=== PATIENT | male | born 1990 ===

== ENCOUNTER 2018-06-04 16:16 | Inpatient (IN) | payer BC, MEDICAID ==
--- NOTE | 2018-06-07 16:59 | CP.PCM.HP ---
History of Present Illness - History of Present Illness History of Present Illness: CC: 24 hour video EEG HPI: 27 y/o man w/ pmh of seizure disorder (diagnosed 3 years ago) presents for 48 hour video EEG. Patient currently on trileptal for seizure control. Patient reports seizures frequency progressively worsening. Patient seen by Dr. Stephen and given script to have 48 hour video EEG. Patient reports smoking marijuana daily, which patient reports helps w/ seizure and migraine. Patient has no other complaints and denies headaches, chest pain, dyspnea, abdominal pain, nausea, vomiting, diarrhea, dysuria, or fever. PMD: Dr. Astudillo PMH: seizure disorder meds: trileptal PSH: denies FamHx: father at age 43 from stroke in 1999 SOC: denies smoking cigarettes, denies alcohol, reports daily marijuana use ROS: 12 points assessed and negative unless otherwise reported in HPI Present on Admission - Present on Admission Any Indicators Present on Admission: No History of DVT/PE: No History of Uncontrolled Diabetes: No Urinary Catheter: No Decubitus Ulcer Present: No Review of Systems - Review of Systems All systems: reviewed and no additional remarkable complaints except - Constitutional Constitutional: absent: Chills, Fever, Headache - EENT Eyes: absent: Change in Vision - Cardiovascular Cardiovascular: absent: Chest Pain - Respiratory Respiratory: absent: Dyspnea - Gastrointestinal Gastrointestinal: absent: Abdominal Pain, Nausea, Vomiting - Genitourinary Genitourinary: absent: Dysuria - Integumentary Integumentary: absent: Rash - Neurological Neurological: absent: Dizziness, Headaches Past Patient History - Infectious Disease Hx of Infectious Diseases: None - Tetanus Immunizations Tetanus Immunization: Unknown - Past Social History Smoking Status: Former Smoker - CARDIAC Hx Cardiac Disorders: No Hx Hypertension: No - PULMONARY Hx Tuberculosis: No - NEUROLOGICAL HX Cerebrovascular Accident: No Hx Seizures: Yes - HEENT Hx HEENT Problems: No - RENAL Hx Chronic Kidney Disease: No - ENDOCRINE/METABOLIC Hx Endocrine Disorders: No - HEMATOLOGICAL/ONCOLOGICAL Hx Cancer: No - INTEGUMENTARY Hx Dermatological Problems: No - MUSCULOSKELETAL/RHEUMATOLOGICAL Hx Musculoskeletal Disorders: No Hx Falls: Yes - GASTROINTESTINAL Hx Gastrointestinal Disorders: No - GENITOURINARY/GYNECOLOGICAL Hx Sexually Transmitted Disorders: No - PSYCHIATRIC Hx Psychophysiologic Disorder: No Hx Depression: Yes Hx Substance Use: No - SURGICAL HISTORY Hx Surgeries: No - ANESTHESIA Hx Anesthesia: No Hx Anesthesia Reactions: No Hx Malignant Hyperthermia: No Meds Allergies/Adverse Reactions: Allergies Allergy/AdvReac Type Severity Reaction Status Date / Time No Known Allergies Allergy Verified 03/15/18 03:04 Physical Exam - Constitutional Appears: Well, Non-toxic, No Acute Distress - Head Exam Head Exam: ATRAUMATIC, NORMAL INSPECTION, NORMOCEPHALIC - Eye Exam Eye Exam: EOMI, Normal appearance, PERRL - ENT Exam ENT Exam: Mucous Membranes Moist - Neck Exam Neck exam: Positive for: Full Rom. Negative for: Tenderness - Respiratory Exam Respiratory Exam: Clear to Auscultation Bilateral, NORMAL BREATHING PATTERN. absent: Decreased Breath Sounds, Rales, Rhonchi, Wheezes, Respiratory Distress - Cardiovascular Exam Cardiovascular Exam: REGULAR RHYTHM, RRR, +S1, +S2. absent: Tachycardia - GI/Abdominal Exam GI & Abdominal Exam: Normal Bowel Sounds, Soft. absent: Distended, Tenderness - Extremities Exam Extremities exam: Positive for: normal capillary refill, normal inspection, pedal pulses present. Negative for: pedal edema - Neurological Exam Neurological exam: Alert, CN II-XII Intact, Normal Gait, Oriented x3 - Skin Skin Exam: Dry, Intact, Normal Color, Warm Assessment & Plan - Assessment and Plan (Free Text) Assessment: 27 y/o man w/ pmh of seizure disorder (diagnosed 3 years ago) presents for 48 hour video EEG. Plan: Seizure disorder - diagnosed 3 years ago - currently on trileptal - 48 hour video EEG - neurology consult, Dr. Stephen - monitor vitals Marijuana use - cessation counselling
[2018-06-07 17:07] VITALS: BMI 32.8
--- NOTE | 2018-06-08 07:08 | CP.PCM.PN ---
Subjective - Date & Time of Evaluation Date of Evaluation: 06/08/18 Time of Evaluation: 10:27 - Subjective Subjective: Patient seen and examined at bedside this morning. There are no acute events overnight, NAD. Patient denies headaches, seizure activity, dizziness, dyspnea, abdominal pain, nausea, vomiting, dysuria, or fever. Objective - Vital Signs/Intake and Output Vital Signs (last 24 hours): Temp Pulse Resp BP Pulse Ox 98.2 F 67 11 L 123/58 L 99 06/08/18 04:00 06/08/18 06:00 06/08/18 06:00 06/08/18 06:00 06/08/18 06:00 Intake and Output: 06/08/18 06/08/18 06:59 18:59 Output Total 200 Balance -200 - Medications Medications: Current Medications Oxcarbazepine (Trileptal) 150 mg PO BID JENNIFER - Constitutional Appears: Non-toxic, No Acute Distress - Head Exam Head Exam: NORMAL INSPECTION, NORMOCEPHALIC - Eye Exam Eye Exam: Normal appearance - ENT Exam ENT Exam: Mucous Membranes Moist - Neck Exam Neck Exam: Full ROM. absent: Tenderness - Respiratory Exam Respiratory Exam: Clear to Ausculation Bilateral, NORMAL BREATHING PATTERN. absent: Decreased Breath Sounds, Rales, Rhonchi, Wheezes, Respiratory Distress - Cardiovascular Exam Cardiovascular Exam: REGULAR RHYTHM, RRR, +S1, +S2. absent: Tachycardia, JVD, Murmur - GI/Abdominal Exam GI & Abdominal Exam: Soft, Normal Bowel Sounds. absent: Distended, Tenderness - Extremities Exam Extremities Exam: absent: Pedal Edema - Neurological Exam Neurological Exam: Alert, Awake, Normal Gait, Oriented x3 - Skin Skin Exam: Dry, Normal Color, Warm Assessment and Plan - Assessment and Plan (Free Text) Assessment: 27 y/o man w/ pmh of seizure disorder (diagnosed 3 years ago) presents for 48 hour video EEG Plan: Seizure disorder - diagnosed 3 years ago - currently on trileptal, held for now - c/w 48 hour video EEG - neurology consult, Dr. Stephen/Dr. Daniels - monitor for seizure activity - monitor vitals Marijuana use - cessation counselling
[2018-06-09 06:25] LABS: BASO # 0.1 K/uL (0.0-0.2); BASO % 0.8 % (0.0-2.0); EOS # 0.3 K/uL (0.0-0.7); EOS % 3.6 % (0.0-4.0); LYMPH # 2.6 K/uL (1.0-4.3); LYMPH % 31.5 % (20.0-40.0); MEAN CELL VOLUME 89.2 fl (80.0-94.0); MEAN CORPUSCULAR HEMOGLOBIN 30.1 pg (27.0-31.0); MEAN CORPUSCULAR HGB CONC 33.8 g/dL (33.0-37.0); MEAN PLATELET VOLUME 9.1 fl (7.2-11.7); MONO # 0.5 K/uL (0.0-0.8); NEUT # 4.9 K/uL (1.8-7.0); NEUT % 58.1 % (50.0-75.0); NRBC % 0.1 % (0.0-0.0); RBC 4.97 Mil/uL (4.40-5.90); RED CELL DISTRIBUTION WIDTH 13.1 % (11.5-14.5); WHITE BLOOD COUNT 8.4 K/uL (4.8-10.8)
[2018-06-09 06:58] LABS: BLOOD UREA NITROGEN 11 mg/dl (9-20); CALCIUM 9.2 mg/dL (8.4-10.2); GFR NON-AFRICAN AMERICAN > 60
[2018-06-09 09:13] VITALS: TEMP 98.3
--- NOTE | 2018-06-09 09:59 | CP.PCM.DIS ---
Provider - Provider Date of Admission: 06/07/18 17:08 Attending physician: Linda Bowie MD Primary care physician: Jt Astudillo MD Consults: 06/07/18 17:07 Neurology Consult Routine Comment: Consulting Provider: Juan Miguel Stephen Consulting Physician: Juan Miguel Stephen Reason for Consult: 48 hour video EEG Hospital Course - Lab Results Lab Results: Most Recent Lab Values WBC 8.4 K/uL (4.8-10.8) 06/09/18 05:25 RBC 4.97 Mil/uL (4.40-5.90) 06/09/18 05:25 Hgb 15.0 g/dL (12.0-18.0) 06/09/18 05:25 Hct 44.3 % (35.0-51.0) 06/09/18 05:25 MCV 89.2 fl (80.0-94.0) 06/09/18 05:25 MCH 30.1 pg (27.0-31.0) 06/09/18 05:25 MCHC 33.8 g/dL (33.0-37.0) 06/09/18 05:25 RDW 13.1 % (11.5-14.5) 06/09/18 05:25 Plt Count 222 K/uL (130-400) 06/09/18 05:25 MPV 9.1 fl (7.2-11.7) 06/09/18 05:25 Neut % (Auto) 58.1 % (50.0-75.0) 06/09/18 05:25 Lymph % (Auto) 31.5 % (20.0-40.0) 06/09/18 05:25 [place] % (Auto) 6.0 % (0.0-10.0) 06/09/18 05:25 Eos % (Auto) 3.6 % (0.0-4.0) 06/09/18 05:25 Baso % (Auto) 0.8 % (0.0-2.0) 06/09/18 05:25 Neut # (Auto) 4.9 K/uL (1.8-7.0) 06/09/18 05:25 Lymph # (Auto) 2.6 K/uL (1.0-4.3) 06/09/18 05:25 [place] # (Auto) 0.5 K/uL (0.0-0.8) 06/09/18 05:25 Eos # (Auto) 0.3 K/uL (0.0-0.7) 06/09/18 05:25 Baso # (Auto) 0.1 K/uL (0.0-0.2) 06/09/18 05:25 Sodium 142 mmol/l (132-148) 06/09/18 05:25 Potassium 4.4 MMOL/L (3.6-5.0) 06/09/18 05:25 Chloride 109 mmol/L (98-107) H 06/09/18 05:25 Carbon Dioxide 25 mmol/L (22-30) 06/09/18 05:25 Anion Gap 12 (10-20) 06/09/18 05:25 BUN 11 mg/dl (9-20) 06/09/18 05:25 Creatinine 1.0 mg/dl (0.8-1.5) 06/09/18 05:25 Est GFR ( Amer) > 60 06/09/18 05:25 Est GFR (Non-Af Amer) > 60 06/09/18 05:25 Random Glucose 104 mg/dL (75-110) 06/09/18 05:25 Calcium 9.2 mg/dL (8.4-10.2) 06/09/18 05:25 Discharge Exam - Head Exam Head Exam: NORMAL INSPECTION, NORMOCEPHALIC Discharge Plan - Follow Up Plan Condition: GOOD Disposition: HOME/ ROUTINE Referrals: Jt Astudillo MD [Primary Care Provider] -
[2018-06-09 14:01] VITALS: O2SAT 95
[2018-06-09 16:12] VITALS: BP 127/80; PULSE 97; RESP 15
--- NOTE | 2018-06-09 16:46 | CP.PCM.CON ---
History of Present Illness - History of Present Illness History of Present Illness: 27 yr old male, patient of Dr. Stephen, here for elective video EEG admisssion. 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 His aura is as follows: confusion and staring from a young age. He has had MRI Brain and EEG done in the past, and he does not know the findings. There is no family history of epilepsy, nor is there head trauma or meningitis or encephalitis. The aura progresses to generalized tonic clonic phase often, and last seizure was on , which was complex partial. In general, he has about 20 complex partial events per month, and has tremendous fatigue from trileptal. He is admitted to evaluate for breakthrough seizures and for localization of seizures. This is a phase one epilepsy monitoring admission. MEd trials: depakote, topamax, keppra, ROS: fatigue, headache. PMH/PSH: no dm, no htn. FH/SH: NO family history of epilepsy. Was working as an EMT for many years. smokes marijuana and no etoh. All: nkda. ON exam: Normal neurological examination. VIdeo EE hours: Shows normal posterior dominant rhythm at 10 hz Frequent Right temporal spikes phase reversing at T4. No clinical or subclinical seizures noted. Past Patient History - Infectious Disease Hx of Infectious Diseases: None - Tetanus Immunizations Tetanus Immunization: Unknown - Past Social History Smoking Status: Never Smoked - CARDIAC Hx Cardiac Disorders: No Hx Hypertension: No - PULMONARY Hx Respiratory Disorders: No Hx Tuberculosis: No - NEUROLOGICAL HX Cerebrovascular Accident: No Hx Seizures: Yes - HEENT Hx HEENT Problems: No - RENAL Hx Chronic Kidney Disease: No - ENDOCRINE/METABOLIC Hx Endocrine Disorders: No - HEMATOLOGICAL/ONCOLOGICAL Hx Blood Disorders: No Hx Cancer: No - INTEGUMENTARY Hx Dermatological Problems: No - MUSCULOSKELETAL/RHEUMATOLOGICAL Hx Musculoskeletal Disorders: No Hx Falls: No - GASTROINTESTINAL Hx Gastrointestinal Disorders: No - GENITOURINARY/GYNECOLOGICAL Hx Genitourinary Disorders: No Hx Sexually Transmitted Disorders: No - PSYCHIATRIC Hx Anxiety: Yes Hx Substance Use: No Other/Comment: Smokes Marijuana daily - SURGICAL HISTORY Hx Surgeries: No - ANESTHESIA Hx Anesthesia: No Hx Anesthesia Reactions: No Hx Malignant Hyperthermia: No Meds Allergies/Adverse Reactions: Allergies Allergy/AdvReac Type Severity Reaction Status Date / Time No Known Allergies Allergy Verified 03/15/18 03:04 - Medications Medications: Current Medications Oxcarbazepine (Trileptal) 150 mg PO BID JENNIFER Results - Vital Signs Recent Vital Signs: Last Vital Signs Temp 98.3 F 06/09/18 12:00 Pulse 81 06/09/18 12:00 Resp 20 06/09/18 12:00 BP 109/61 06/09/18 12:00 Pulse Ox 100 06/09/18 12:00 - Labs Result Diagrams: 06/09/18 05:25 06/09/18 05:25 Labs: Laboratory Results - last 24 hr 06/09/18 06/09/18 05:25 05:25 WBC 8.4 RBC 4.97 Hgb 15.0 Hct 44.3 MCV 89.2 MCH 30.1 MCHC 33.8 RDW 13.1 Plt Count 222 MPV 9.1 Neut % (Auto) 58.1 Lymph % (Auto) 31.5 [place] % (Auto) 6.0 Eos % (Auto) 3.6 Baso % (Auto) 0.8 Neut # (Auto) 4.9 Lymph # (Auto) 2.6 [place] # (Auto) 0.5 Eos # (Auto) 0.3 Baso # (Auto) 0.1 Sodium 142 Potassium 4.4 Chloride 109 H Carbon Dioxide 25 Anion Gap 12 BUN 11 Creatinine 1.0 Est GFR ( Amer) > 60 Est GFR (Non-Af Amer) > 60 Random Glucose 104 Calcium 9.2 Assessment & Plan - Assessment and Plan (Free Text) Assessment: 27 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 Plan; 1. Hold trileptal for admission. 2. Start video EEG monitoring for [address] chavez
--- NOTE | 2018-06-09 16:51 | CP.PCM.PN ---
Subjective - Date & Time of Evaluation Date of Evaluation: 06/09/18 Time of Evaluation: 11:00 - Subjective Subjective: Patient had no seizures or push buttons overnight. He would like to be discharged today. States that he requires marijuana to sleep nightly and has frequent complex partial events. EEG: shows normal posterior dominant rhythm RIght temporal sharp waves. On exam: Normal neurological examination. 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 He has failed multiple medications and most recently, his trileptal was reduced because he could not tolerate higher doses due to sleepiness. Even on 300 mg daily of trileptal, his video eeg shows that he is having frequent spikes. I feel that he has two treatment plan choices: 1. To start aptiom which will help his anxiety and epilepsy and is very well tolerated. 2. If aptiom is not covered by his insurance, and we are not able to procure an alternate, to first add lamictal 50 mg daily to his trileptal at night, until we can switch him to aptiom. These were discussed with the patient and his insurance did not cover aptiom. We will attempt to obtain it for him, and at the moment add lamictal 50 mg am, and trileptal 300 mg pm RTC to clinic in one month No driving for 3 months Seizure precautions. Thank you DR. Daniels [facility] Ep[facility]
--- NOTE | 2018-06-11 15:39 | PCM.VEEG ---
Video EEG - Procedure Start Date: 06/07/18 Start Time: 20:20 End Date: 06/09/18 End Time: 16:00 - Interpretation Description of the study: Manager Client Support Comments: Electrodes were placed according to the 10-20 international electrode system by sleep technologist. EEG activity was digitally recorded referentially to P1/P2 or A1/A2 electrodes. Digital analysis was used for spike detection. Continuous monitoring with EEG was performed using spike and seizures detection algorithms for digital EEG analysis throughout the monitoring period, to screen to EEG in real-time and ana the date file with pointers to electrographic seizures and interictal discharges. Physician, epileptologist reviewed detections, as well as extensive random samples and whole EEG study in detail. Digital EEG Analysis: was carried out including FFT (Fast Fourier Transform), R2D2 (Rhythmicity Run Detection and Display), Relative Asymmetry Spectrogram, and voltage plot by the [employer]. The Qualitative EEG analysis, and the voltage plot mapping were used for detection of foci of paroxysmal and abnormal electrical cortical activity. Interpretation: The background activity consisted of symmetrical posterior dominant 8-10 Hz Alpha. There are frequent right temporal sharp waves that do not evolve into subclinical or clinical seizures. Activation Procedures: Hyperventilation and photic stimulation were done and did not reveal any abnormalities. Sleep Patterns: The drowsy portion of the recording was characterized by attenuation of the background activity with the presence of low amplitude activity seen diffusely. Sleep stage II was recorded and revealed normal vertex waves and sleep spindles. Slow wave sleep with K complexes, posts was recorded with no abnormalities noted. Clinical Impression: This was an abnormal awake and sleep 48 hour EEG. There were frequent right temporal discharges that inhere were no clinical or subclinical seizures. This indicates that the patient has right temporal lobe epilepsy that is not controlled on current medications. Hospital Course: Patient was taken off all medications. On discharge, he was restarted on lamictal 50 mg am, and trileptal xr 300 mg pm. This was done because patient was feeling very sedated on current trileptal and was still having epileptiform activity. Seizure precautions were discussed and patient was told that he will not be able to drive. Dr. Jeremiah LESLIEN Neurology [facility] Epilepsy
== END 2018-06-09 16:55 | disposition home or self-care (01) | DRG 101 ==
LOC: H.ICU/CCU 06-07 17:08
PROVIDERS: ADMIT Hospitalist; ATTEND Hospitalist
PROC: 4A10X4Z Monitoring of Central Nervous Electrical Activity, External Approach (ICD-10-PCS; principal; 2018-06-09)
DX: G40.909 Epilepsy, unspecified, not intractable, without status epilepticus (principal); F12.90 Cannabis use, unspecified, uncomplicated; G43.909 Migraine, unspecified, not intractable, without status migrainosus; Z87.891 Personal history of nicotine dependence; F41.9 Anxiety disorder, unspecified; G40.209 Localization-related (focal) (partial) symptomatic epilepsy and epileptic syndromes with complex partial seizures, not intractable, without status epilepticus; F32.9 Major depressive disorder, single episode, unspecified